=== PATIENT | male | born 1965 | race Caucasian/White ===

== ENCOUNTER 2022-07-23 23:55 | Inpatient (IN) | payer BC ==
[2022-07-24 01:05] VITALS: BMI 26.4
[2022-07-24] MEDS ORDERED: Acetaminophen 325 MG TAB PO PRN (01:26)
[2022-07-24] MEDS ORDERED: Ondansetron PF 4 MG/2 ML Vial IVP PRN (01:26)
[2022-07-24] MEDS ORDERED: hydrALAZINE 20 MG/ML VIAL SLOW IVP PRN (01:29)
[2022-07-24] MEDS ORDERED: Allopurinol 100 MG TAB PO SCH (01:45)
[2022-07-24] MEDS ORDERED: Atorvastatin Calcium 10 MG TAB PO SCH (02:00)
[2022-07-24] MEDS ORDERED: Lisinopril 10 MG TAB PO SCH (02:00)
[2022-07-24] MEDS: Sodium Chloride 0.9% 1,000 ML IV SCH ×2 (02:03→14:42)
[2022-07-24] MEDS: Piperacillin/Tazobactam 3.375 GM in Sodium Chloride 0.9% 100 ML IVPB SCH ×3 (04:05→20:06)
[2022-07-24] MEDS: Morphine 2 MG/ML VIAL SLOW IVP PRN ×4 (05:31→19:02)
[2022-07-24 05:57] LABS: ALT (SGPT) 19 U/L (8-55); AST (SGOT) 16 U/L (5-34); Albumin 3.5 g/dL (3.5-5.0); Alkaline Phosphatase 83 U/L (40-110); Anion Gap 13 mmol/L (10-20); BUN (Urea Nitrogen) 9 mg/dL (8.4-25.7); Bilirubin, Total 0.9 mg/dL (0.2-1.2); Calc. Creatinine Clearance 102 mL/min (70-130); Calcium 8.3 mg/dL (7.8-10.44); Carbon Dioxide 22 mmol/L (22-29); Chloride 106 mmol/L (98-107); Estimated GFR 90; Glucose 120 mg/dL (70-105); Potassium 3.7 mmol/L (3.5-5.1); Protein, Total 6.5 g/dL (6.0-8.3); Sodium 137 mmol/L (136-145)
[2022-07-24 06:15] LABS: Hemoglobin 13.3 g/dL (14.0-18.0); Mean Corpuscular HGB CONC 33.2 g/dL (32.0-36.0); Mean Corpuscular Hemoglobin 31.5 pg (27.0-31.0); Mean Corpuscular Volume 94.8 fL (78.0-98.0); Mean Platelet Volume 7.4 fL (7.4-10.4); Platelet Count 214 thou/uL (130-400); RBC Distribution Width 12.8 % (11.5-14.5); Red Blood Cell (RBC) Count 4.21 mill/uL (4.70-6.10); White Blood Cell (WBC) Count 8.9 thou/uL (4.8-10.8)
[2022-07-24 06:50] LABS: Band 5 % (5-11); Lymphocytes 27 % (21-51); MDiff Complete? YES; Monocytes 18 % (0-10); Neutrophil 50 % (42-75)
[2022-07-24] MEDS: Amlodipine 5 MG TAB PO SCH (10:24)
[2022-07-24] MEDS: Bupropion 150 MG XL TAB PO SCH (10:24)
[2022-07-24] MEDS: Atorvastatin Calcium 10 MG TAB PO SCH (20:11)
[2022-07-24] MEDS: Lisinopril 10 MG TAB PO SCH (20:11)
[2022-07-24] MEDS: Allopurinol 100 MG TAB PO SCH (20:11)
[2022-07-25] MEDS: Morphine 2 MG/ML VIAL SLOW IVP PRN ×4 (00:07→13:59)
[2022-07-25] MEDS: Sodium Chloride 0.9% 1,000 ML IV SCH ×2 (03:52→20:58)
[2022-07-25] MEDS: Piperacillin/Tazobactam 3.375 GM in Sodium Chloride 0.9% 100 ML IVPB SCH ×3 (03:52→20:58)
[2022-07-25 06:00] LABS: #Eosinphils 0.2 thou/uL (0.0-0.7); #Lymphocytes 1.6 thou/uL (1.20-3.40); #Monocytes 1.2 thou/uL (0.11-0.59); #Neutrophils 5.2 thou/uL (1.40-6.50); %Basophils 0.1 % (0.0-1.0); %Eosinophils 2.2 % (0.0-10.0); %Lymphocytes 19.5 % (21.0-51.0); %Monocytes 14.9 % (0.0-10.0); %Neutrophils 63.3 % (42.0-75.0); Hemoglobin 12.7 g/dL (14.0-18.0); Mean Corpuscular HGB CONC 33.1 g/dL (32.0-36.0); Mean Corpuscular Hemoglobin 31.4 pg (27.0-31.0); Mean Corpuscular Volume 94.9 fL (78.0-98.0); Mean Platelet Volume 7.5 fL (7.4-10.4); Platelet Count 222 thou/uL (130-400); RBC Distribution Width 12.4 % (11.5-14.5); Red Blood Cell (RBC) Count 4.04 mill/uL (4.70-6.10); White Blood Cell (WBC) Count 8.3 thou/uL (4.8-10.8)
[2022-07-25 06:20] LABS: ALT (SGPT) 24 U/L (8-55); AST (SGOT) 18 U/L (5-34); Albumin 3.5 g/dL (3.5-5.0); Alkaline Phosphatase 96 U/L (40-110); Anion Gap 12 mmol/L (10-20); BUN (Urea Nitrogen) 8 mg/dL (8.4-25.7); Bilirubin, Total 0.8 mg/dL (0.2-1.2); Calc. Creatinine Clearance 100 mL/min (70-130); Carbon Dioxide 25 mmol/L (22-29); Chloride 105 mmol/L (98-107); Estimated GFR 88; Globulin 3.2 g/dL (2.4-3.5); Glucose 109 mg/dL (70-105); Protein, Total 6.7 g/dL (6.0-8.3); Sodium 138 mmol/L (136-145)
[2022-07-25] MEDS: Amlodipine 5 MG TAB PO SCH (14:00)
[2022-07-25] MEDS: Bupropion 150 MG XL TAB PO SCH (14:00)
[2022-07-25] MEDS ORDERED: Bupivacaine HCl 0.5%/Epinephrine 1:200,000/PF 30 ml Vial ONE (16:30)
[2022-07-25] MEDS ORDERED: fentaNYL Citrate/PF 100 MCG/2 ML SYRINGE ONE (16:49)
[2022-07-25] MEDS ORDERED: PROPOFOL 200 MG/20 ML VIAL ONE (16:52)
[2022-07-25] MEDS ORDERED: Phenylephrine 10 MG/ML VIAL ONE (16:52)
[2022-07-25] MEDS ORDERED: ePHEDrine 50 MG/ML VIAL ONE (16:52)
[2022-07-25] MEDS ORDERED: Ondansetron PF 4 MG/2 ML Vial ONE (16:52)
[2022-07-25] MEDS ORDERED: Rocuronium Bromide 10 MG/ML (10ML VIAL) ONE (16:52)
[2022-07-25] MEDS ORDERED: Dexamethasone 20 MG/5 ML VIAL ONE (16:52)
[2022-07-25] MEDS ORDERED: Lidocaine 1% MPF 2 ML VIAL ONE (16:52)
[2022-07-25] MEDS ORDERED: Lidocaine 1% (PF) 30 ML VIAL ONE (17:12)
[2022-07-25] MEDS ORDERED: SUGAMMADEX SODIUM 200 MG/2 ML VIAL ONE (19:08)
[2022-07-25] MEDS ORDERED: Ondansetron HCl/PF 4 MG/2 ML Vial IVP PRN (19:37)
[2022-07-25] MEDS ORDERED: Promethazine HCl 25 MG/ML VIAL IVPB PRN (19:37)
[2022-07-25] MEDS ORDERED: Promethazine HCl 25 MG/ML VIAL IM PRN (19:37)
[2022-07-25] MEDS ORDERED: Fentanyl 100 MCG/2 ML VIAL ONE ×2 (19:42→20:23)
[2022-07-25] MEDS: Allopurinol 100 MG TAB PO SCH (20:59)
[2022-07-25] MEDS: Lisinopril 10 MG TAB PO SCH (20:59)
[2022-07-25] MEDS: Atorvastatin Calcium 10 MG TAB PO SCH (20:59)
[2022-07-25] MEDS: Ketorolac Tromethamine 30 MG/ML VIAL IVP PRN (23:32)
[2022-07-25] MEDS: HYDROcodone/Acetaminophen 5/325 mg Tablet PO PRN (23:33)
[2022-07-26] MEDS: HYDROcodone/Acetaminophen 5/325 mg Tablet PO PRN ×3 (04:45→18:51)
[2022-07-26] MEDS: Morphine 2 MG/ML VIAL SLOW IVP PRN (04:50)
[2022-07-26 06:17] LABS: #Lymphocytes 0.6 thou/uL (1.20-3.40); #Monocytes 0.3 thou/uL (0.11-0.59); #Neutrophils 6.7 thou/uL (1.40-6.50); %Eosinophils 0.1 % (0.0-10.0); %Lymphocytes 8.2 % (21.0-51.0); %Neutrophils 87.6 % (42.0-75.0); Hemoglobin 13.2 g/dL (14.0-18.0); Mean Corpuscular HGB CONC 32.1 g/dL (32.0-36.0); Mean Corpuscular Hemoglobin 30.4 pg (27.0-31.0); Mean Corpuscular Volume 94.7 fL (78.0-98.0); Mean Platelet Volume 7.2 fL (7.4-10.4); Platelet Count 267 thou/uL (130-400); RBC Distribution Width 12.3 % (11.5-14.5); Red Blood Cell (RBC) Count 4.33 mill/uL (4.70-6.10); White Blood Cell (WBC) Count 7.6 thou/uL (4.8-10.8)
[2022-07-26 06:42] LABS: ALT (SGPT) 30 U/L (8-55); AST (SGOT) 24 U/L (5-34); Albumin 3.6 g/dL (3.5-5.0); Alkaline Phosphatase 106 U/L (40-110); Anion Gap 13 mmol/L (10-20); BUN (Urea Nitrogen) 11 mg/dL (8.4-25.7); Bilirubin, Total 0.6 mg/dL (0.2-1.2); Calc. Creatinine Clearance 98 mL/min (70-130); Calcium 9.2 mg/dL (7.8-10.44); Carbon Dioxide 23 mmol/L (22-29); Chloride 106 mmol/L (98-107); Estimated GFR 86; Globulin 3.5 g/dL (2.4-3.5); Glucose 156 mg/dL (70-105); Potassium 4.3 mmol/L (3.5-5.1); Protein, Total 7.1 g/dL (6.0-8.3); Sodium 138 mmol/L (136-145)
[2022-07-26] MEDS: Amlodipine 5 MG TAB PO SCH (08:08)
[2022-07-26] MEDS: Bupropion 150 MG XL TAB PO SCH (08:08)
[2022-07-26] MEDS: Polyethylene Glycol 3350 17 GM Packet PO SCH (12:26)
[2022-07-26] MEDS: Sodium Chloride 0.9% 1,000 ML IV SCH (20:03)
[2022-07-26] MEDS: Lisinopril 10 MG TAB PO SCH (21:04)
[2022-07-26] MEDS: Allopurinol 100 MG TAB PO SCH (21:05)
[2022-07-26] MEDS: Atorvastatin Calcium 10 MG TAB PO SCH (21:05)
[2022-07-26] MEDS: Ketorolac Tromethamine 30 MG/ML VIAL IVP PRN (21:05)
[2022-07-27] MEDS: Amlodipine 5 MG TAB PO SCH (08:41)
[2022-07-27] MEDS: HYDROcodone/Acetaminophen 5/325 mg Tablet PO PRN (08:42)
[2022-07-27] MEDS: Polyethylene Glycol 3350 17 GM Packet PO SCH (08:42)
[2022-07-27] MEDS: Bupropion 150 MG XL TAB PO SCH (08:42)
[2022-07-27 12:16] VITALS: BP 155/89; TEMP 98
== END 2022-07-27 14:00 | disposition home or self-care (01) | DRG 419 ==
LOC: SURG A 07-24 00:54
PROVIDERS: ADMIT Internal Medicine; ATTEND Internal Medicine
PROC: 0FT44ZZ Resection of Gallbladder, Percutaneous Endoscopic Approach (ICD-10-PCS; principal; 2022-07-25)
DX: K81.0 Acute cholecystitis (principal); Z20.822 Contact with and (suspected) exposure to COVID-19; I10 Essential (primary) hypertension; E78.5 Hyperlipidemia, unspecified; M10.9 Gout, unspecified; Z90.49 Acquired absence of other specified parts of digestive tract; Z79.899 Other long term (current) drug therapy; Z87.891 Personal history of nicotine dependence
CPT/HCPCS: 36415; 76705; 80053; 85025; 88304; C1776; J1100; J1885; J2001; J2270; J2370; J2405; J2543; J2704; J3010; J3490; J7050